=== PATIENT | female | born 1955 | race African-American/Black ===

== ENCOUNTER 2016-07-31 05:52 | Emergency (ER) | payer OTHER ==
[~2016-07-31] VITALS: Ht 165.1 cm; Wt 140.6 kg
--- NOTE | ~2016-07-31 | EKG ---
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
[2016-07-31 06:11] LABS: BASOPHILS 0.9 % (0.0-2.0); EOSINOPHILS 2.7 % (0.0-3.0); HEMATOCRIT 40.2 % (37.0-47.0); HEMOGLOBIN 13.1 gm/dL (12.0-15.0); LYMPHOCYTES 30.6 % (24.0-44.0); MCH 21.8 pg (26.0-34.0); MCHC 32.5 g/dL (28.0-37.0); MONOCYTES 9.6 % (1.0-8.0); PLATELET COUNT 297 thou/uL (150-400); POLYS 56.2 % (36.0-66.0); RDW 15.7 % (10.5-14.5); WBC 8.9 thou/uL (4.0-11.0)
[2016-07-31 06:14] LABS: MANUAL DIFF NO
[2016-07-31 06:21] LABS: ANION GAP 13 mmol/L (7-16); BUN 21 mg/dL (7-18); CALCIUM 8.9 mg/dL (8.5-10.1); CHLORIDE 104 mmol/L (98-107); CO2 23 mmol/L (21-32); CREATININE 1.6 mg/dL (0.6-1.0); GLUCOSE 110 mg/dL (74-106); POTASSIUM 3.3 mmol/L (3.5-5.1); SODIUM 140 mmol/L (136-145)
[2016-07-31 06:25] LABS: INR 1.1
[2016-07-31 06:29] LABS: ALBUMIN 3.7 g/dL (3.4-5.0); ALKALINE PHOSPHATASE 101 U/L (46-116); SGOT 22 U/L (15-37); SGPT 21 U/L (30-65); TOTAL BILIRUBIN 0.6 mg/dL (<0.1-1.0); TOTAL PROTEIN 7.8 g/dL (6.4-8.2); TROPONIN-I < 0.04 ng/mL (<0.04-0.07)
[2016-07-31] MEDS ORDERED: PREDNISONE 20 M20 MG PO (07:12)
[2016-07-31] MEDS ORDERED: VALACYCLOVIR1000 MG PO (07:12)
[2016-07-31] MEDS ORDERED: REFRESH LACRI-3.5 GM OP (07:17)
[2016-07-31] MEDS ORDERED: REFRESH TEARS15 ML OP (07:17)
[2016-07-31 08:00] VITALS: BP 139/75
[2016-07-31 09:26] LABS: HYPOCHROMASIA 2+; MICROCYTES 2+; OVALOCYTES 2+
[2016-07-31 09:27] LABS: ANISOCYTOSIS 1+
== END 2016-07-31 08:02 | disposition home or self-care (01) ==
LOC: ER 05:52
PROVIDERS: Emergency Medicine
DX: G51.0 Bell's palsy (principal); G47.30 Sleep apnea, unspecified; I10 Essential (primary) hypertension; Z87.442 Personal history of urinary calculi; Z90.710 Acquired absence of both cervix and uterus; Z90.89 Acquired absence of other organs; Z91.040 Latex allergy status